=== PATIENT | female | born 1985 | race Caucasian/White ===

== ENCOUNTER 2016-08-17 19:07 | Emergency (ER) | payer MEDICAID ==
[2016-08-17] MEDS ORDERED: Albuterol/Ipratropium 3.0-0.5 MG/3 ML Neb Soln NEB ONE (19:54)
--- NOTE | 2016-08-17 20:10 | EDM.PDOC ---
ED HISTORY OF PRESENT ILLNESS - General Chief Complaint: Respiratory Problem Stated Complaint: COLD Time Seen by Provider: 08/17/16 19:27 Source of Information: Reports: Patient History Limitations: Reports: No limitations - History of Present Illness INITIAL COMMENTS - FREE TEXT/NARRATIVE: HISTORY AND PHYSICAL: [30-year-old female presenting with cough difficulty breathing. Patient was sick for one week and did have a fever.] History of Present Illness: [Patient's daughter has hx of asthma and used her nebulizer machine this morning. Patient has been coughing for the last week Patient's daughter was sick with the flu 3 weeks ago.] Review of Systems: As per history of present illness and below otherwise all systems reviewed and negative. Past medical history: As per history of present illness and as reviewed below otherwise noncontributory. Surgical history: As per history of present illness and as reviewed below otherwise noncontributory. Social history: No reported history of drug or alcohol abuse. Family history: As per history of present illness and as reviewed below otherwise noncontributory. Physical exam: Alert and oriented. Patient looks like she feels miserable. HEENT: Atraumatic, normocehpalic, pupils reactive, negative for conjunctival pallor or scleral icterus, mucous membranes moist, throat clear, neck supple, nontender, trachea midline. Lungs: Anterior crackles on auscultation, breath sounds equal bilaterally, chest tender. With cough. Heart: S1S2, regular, negative for clicks, rubs, or JVD. Abdomen: Soft, nondistended, nontender. Negative for masses or hepatossplenmegaly. Negative for costovertebral tenderness. Extremities: Atraumatic, negative for cords or calf pain. Neurovascular unremarkable. Neuro: Awake, alert, oriented. Cranial nerves II through XII unremarkable. Cerebellum unremarkable. Motor and sensory unremarkable throughout. Exam nonfocal. Diagnostics: [Influenza, chest x-ray all are negative] Therapeutics: [DuoNeb] Impression: [Acute bronchitis] Plan: [Zithromax Tessalon Perles Albuterol for Neb Machine] Definitive disposition and diagnosis as appropriate pending reevaluation and review of above. 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: Breathing treatments (this morning) - Related Data Allergies/ADRs: Allergies Allergy/AdvReac Type Severity Reaction Status Date / Time meperidine HCl [From Demerol] Allergy Anxiety Verified 12/09/15 02:10 penicillin G Allergy Vomiting Verified 08/17/16 19:22 penicillin G procaine Allergy Vomiting Verified 08/17/16 19:22 penicillin V Allergy Vomiting Verified 08/17/16 19:22 Penicillins Allergy Vomiting Verified 08/17/16 19:22 Home Meds: Home Meds Insulin Aspart [Novolog Flexpen] 0 units SQ DAILY 09/11/15 [History] Insulin Detemir [Levemir] 20 unit SUBCUT BEDTIME 09/11/15 [History] Lisinopril 10 mg PO DAILY 12/09/15 [History] Albuterol [IMW: Albuterol] 2.5 mg .XX Q4HR #25 ml 08/17/16 [Rx] Azithromycin [Zithromax] 250 mg PO DAILY #6 tablet 08/17/16 [Rx] Benzonatate [Tessalon Perles] 100 mg PO QID #40 cap 08/17/16 [Rx] Past Medical History - Past Health History Medical/Surgical History: Denies Medical/Surgical History HEENT History: Reports: Impaired vision Cardiovascular History: Reports: High cholesterol 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: Endocrine/Metabolic History: Reports: Diabetes, type II - Infectious Disease History Infectious Disease History: Reports: Chicken pox, Measles, Mumps - Past Surgical History Musculoskeletal Surgical History: Reports: Other (see below) Other Musculoskeletal Surgeries/Procedures:: left wrist surgery Social & Family History - Family History Family Medical History: Noncontributory - Tobacco Use Smoking Status *Q: Never Smoker Second Hand Smoke Exposure: No - Caffeine Use Caffeine Use: Reports: None - Recreational Drug Use Recreational Drug Use: No ED ROS GENERAL - Review of Systems Review Of Systems: ROS reveals no pertinent complaints other than HPI. ED EXAM, GENERAL - Physical Exam Exam: See Below (see dictation) Course - Vital Signs Last Recorded V/S: Last Vital Signs Temp 37.4 C 08/17/16 19:23 Pulse 101 H 08/17/16 20:50 Resp 20 08/17/16 20:50 BP 124/71 08/17/16 20:50 Pulse Ox 98 08/17/16 20:50 - Orders/Labs/Meds Orders: Active Orders 24 hr Category Date Time Status RT Aerosol Therapy [RC] ASDIRECTED Care 08/17/16 19:54 Active Chest 2V [CR] Stat Exams 08/17/16 20:21 Taken Meds: Medications Discontinued Medications Generic Name Dose Route Start Last Admin Trade Name Horacio PRN Reason Stop Dose Admin Albuterol/Ipratropium 3 ml 08/17/16 19:54 08/17/16 20:04 Duoneb 3.0-0.5 Mg/3 Ml NEB 08/17/16 19:55 3 ml ONETIME ONE Administration Departure - Departure Time of Disposition: 21:02 Disposition: Home, Self-Care 01 Condition: good Clinical Impression: Bronchitis Prescriptions: Albuterol [IMW: Albuterol] 2.5 mg .XX Q4HR #25 ml Azithromycin [Zithromax] 250 mg PO DAILY #6 tablet Benzonatate [Tessalon Perles] 100 mg PO QID #40 cap Referrals: PCP,None [Primary Care Provider] - Forms: ED Department Discharge - My Orders Last 24 Hours: My Active Orders 08/17/16 19:54 RT Aerosol Therapy [RC] ASDIRECTED 08/17/16 20:21 Chest 2V [CR] Stat - Assessment/Plan Last 24 Hours: My Active Orders 08/17/16 19:54 RT Aerosol Therapy [RC] ASDIRECTED 08/17/16 20:21 Chest 2V [CR] Stat
[2016-08-17 21:24] VITALS: BP 126/74
--- NOTE | 2016-08-18 19:39 | CR ---
EXAM DATE: 08/17/16 PATIENT'S AGE: 30 Patient: BANDAR BANG Facility: [place], [place] Site . Site : [id number] Study: XRay Chest [id number]/9/2017 8:31:41 PM Ordering Physician: Doctor Priest Final Report: INDICATION: cough x8 days TECHNIQUE: Chest 2 views. COMPARISON: None. FINDINGS: Cardiovascular and mediastinum: Heart size and vasculature are normal in caliber and appearance. Mediastinum is within normal limits. Lungs and pleural spaces: Lungs are clear. No sign of infiltrate or mass. No sign of pleural effusion. No pneumothorax. Bones and soft tissues: No significant findings. IMPRESSION: Unremarkable chest. Dictated by: Harpreet Lares MD @ 08/17/2016 20:38:54 (Electronic Signature) Report Signed by Proxy and Original Signed Document filed in the Medical Record. [email or web address]
== END 2016-08-17 21:22 | disposition home or self-care (01) ==
LOC: MW.ED 19:07
DX: J20.9 Acute bronchitis, unspecified (principal); E78.00 Pure hypercholesterolemia, unspecified; E11.9 Type 2 diabetes mellitus without complications; Z79.4 Long term (current) use of insulin; Z88.0 Allergy status to penicillin
CPT/HCPCS: 71020; 71020-26; 87804; 94664; 99284; 99284-25

== ENCOUNTER 2017-06-08 15:41 | Emergency (ER) | payer MEDICAID ==
[2017-06-08] MEDS ORDERED: Albuterol/Ipratropium 3.0-0.5 MG/3 ML Neb Soln NEB ONE (16:25)
--- NOTE | 2017-06-08 16:33 | EDM.PDOC ---
ED HPI GENERAL MEDICAL PROBLEM - General Chief Complaint: Respiratory Problem Stated Complaint: cough Time Seen by Provider: 06/08/17 16:00 Source of Information: Reports: Patient History Limitations: Reports: No Limitations - History of Present Illness INITIAL COMMENTS - FREE TEXT/NARRATIVE: History of present illness: [31-year-old female comes in complaining of intermittent fever, productive cough , and sore throat. Indicates the symptoms have gotten progressively worse over the last 36 hours.] Review of systems: As per history of present illness and below otherwise all systems reviewed and negative. Past medical history: As per history of present illness and as reviewed below otherwise noncontributory. Surgical history: As per history of present illness and as reviewed below otherwise noncontributory. Social history: No reported history of drug or alcohol abuse. Family history: As per history of present illness and as reviewed below otherwise noncontributory. Physical exam: HEENT: Atraumatic, normocephalic, pupils reactive, negative for conjunctival pallor or scleral icterus, mucous membranes moist with oral pharyngeal erythema without white patchy exudate, bilateral TMs noted to be pink with good light reflex, neck supple, nontender, trachea midline. Lungs: Lungs slightly diminished with random coarse breath sounds that improve with productive cough, sputum noted to be slightly green and sen in color, breath sounds equal bilaterally, chest nontender. Heart: S1S2, regular, negative for clicks, rubs, or JVD. Abdomen: Soft, nondistended, nontender. Negative for masses or hepatosplenomegaly. Negative for costovertebral tenderness. Pelvis: Stable nontender. Genitourinary: Deferred. Rectal: Deferred. Extremities: Atraumatic, negative for cords or calf pain. Neurovascular unremarkable. Neuro: Awake, alert, oriented. Cranial nerves II through XII unremarkable. Cerebellum unremarkable. Motor and sensory unremarkable throughout. Exam nonfocal. Diagnostics: [] Therapeutics: [DuraNeb] Impression: [#1 pharyngitis #2 cough #3 viral syndrome] Plan: [Azithromycin, Medrol Dosepak, albuterol inhaler with spacer] Definitive disposition and diagnosis as appropriate pending reevaluation and review of above. Bodyaches Pain Score (Numeric/FACES): 5 - Related Data Allergies Allergy/AdvReac Type Severity Reaction Status Date / Time meperidine HCl [From Demerol] Allergy Anxiety Verified 06/08/17 16:08 penicillin G Allergy Vomiting Verified 06/08/17 16:08 penicillin G procaine Allergy Vomiting Verified 06/08/17 16:08 penicillin V Allergy Vomiting Verified 06/08/17 16:08 Penicillins Allergy Vomiting Verified 06/08/17 16:08 Home Meds: Home Meds Insulin Aspart [Novolog Flexpen] 0 units SQ DAILY 09/11/15 [History] Insulin Detemir [Levemir] 20 unit SUBCUT BEDTIME 09/11/15 [History] Lisinopril 10 mg PO DAILY 12/09/15 [History] Albuterol [IMW: Albuterol] 2.5 mg .XX Q4HR #25 ml 08/17/16 [Rx] Azithromycin [Zithromax] 250 mg PO DAILY #6 tablet 08/17/16 [Rx] Benzonatate [Tessalon Perles] 100 mg PO QID #40 cap 08/17/16 [Rx] Albuterol Sulfate [Proair Hfa] 2 puff IH Q6HR #1 hfa.aer.ad 06/08/17 [Rx] Azithromycin [IJD: Azithromycin] 250 mg PO DAILY #6 tab 06/08/17 [Rx] Inhaler, Assist Devices [Space Chamber Plus] 1 each MC ASDIRECTED #1 spacer [Rx] methylPREDNISolone [Medrol] 4 mg PO DAILY #21 tab.ds.pk 06/08/17 [Rx] Past Medical History - Past Health History Medical/Surgical History: Denies Medical/Surgical History HEENT History: Reports: Impaired Vision Cardiovascular History: Reports: High Cholesterol, Hypertension 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: Endocrine/Metabolic History: Reports: Diabetes, Type I - Infectious Disease History Infectious Disease History: Reports: Chicken Pox, Measles, Mumps - Past Surgical History Musculoskeletal Surgical History: Reports: Other (See Below) Social & Family History - Family History Family Medical History: Noncontributory - Tobacco Use Smoking Status *Q: Never Smoker Second Hand Smoke Exposure: No - Caffeine Use Caffeine Use: Reports: None - Recreational Drug Use Recreational Drug Use: No ED ROS GENERAL - Review of Systems Review Of Systems: See Below (History of present illness) ED EXAM, GENERAL - Physical Exam Exam: See Below (See history of present illness) Course - Vital Signs Last Recorded V/S: Last Vital Signs Temp 36.7 C 12/29/17 16:09 Pulse 85 06/08/17 16:09 Resp 18 06/08/17 16:09 BP 186/79 H 06/08/17 16:09 Pulse Ox 98 06/08/17 16:09 - Orders/Labs/Meds Orders: Active Orders 24 hr Category Date Time Status RT Aerosol Therapy [RC] ASDIRECTED Care 06/08/17 16:25 Ordered INFLUENZA A+B AG SCREEN [RM] Stat Lab 06/08/17 16:00 Received Meds: Medications Discontinued Medications Generic Name Dose Route Start Last Admin Trade Name Freq PRN Reason Stop Dose Admin Albuterol/Ipratropium 3 ml 06/08/17 16:25 Duoneb 3.0-0.5 Mg/3 Ml NEB 06/08/17 16:26 ONETIME ONE Departure - Departure Time of Disposition: 16:32 Disposition: Home, Self-Care 01 Condition: Good Clinical Impression: Acute pharyngitis, Bronchitis - Discharge Information Prescriptions: Albuterol Sulfate [Proair Hfa] 2 puff IH Q6HR #1 hfa.aer.ad Azithromycin [IJD: Azithromycin] 250 mg PO DAILY #6 tab Inhaler, Assist Devices [Space Chamber Plus] 1 each MC ASDIRECTED #1 spacer methylPREDNISolone [Medrol] 4 mg PO DAILY #21 tab.ds.pk Instructions: Acute Bronchitis, [id number], Upper Respiratory Infection, Adult, [id number] Referrals: Chasity Dolan, SPECIAL LOAN OFFICER [Primary Care Provider] - Additional Instructions: The following information is given to patients seen in the emergency department who are being discharged to home. This information is to outline your options for follow-up care. We provide all patients seen in our emergency department with a follow-up referral. The need for follow-up, as well as the timing and circumstances, are variable depending upon the specifics of your emergency department visit. If you don't have a primary care physician on staff, we will provide you with a referral. We always advise you to contact your personal physician following an emergency department visit to inform them of the circumstance of the visit and for follow-up with them and/or the need for any referrals to a consulting specialist. The emergency department will also refer you to a specialist when appropriate. This referral assures that you have the opportunity for follow-up care with a specialist. All of these measure are taken in an effort to provide you with optimal care, which includes your follow-up. Under all circumstances we always encourage you to contact your private physician who remains a resource for coordinating your care. When calling for follow-up care, please make the office aware that this follow-up is from your recent emergency room visit. If for any reason you are refused follow-up, please contact the [facility] Emergency Department at and asked to speak to the emergency department charge nurse. Take medication as directed Follow-up with PCP in 3-5 days Return to ED as needed as discussed - My Orders Last 24 Hours: My Active Orders 06/08/17 16:00 INFLUENZA A+B AG SCREEN [RM] Stat 06/08/17 16:25 RT Aerosol Therapy [RC] ASDIRECTED - Assessment/Plan Last 24 Hours: My Active Orders 06/08/17 16:00 INFLUENZA A+B AG SCREEN [RM] Stat 06/08/17 16:25 RT Aerosol Therapy [RC] ASDIRECTED
[2017-06-08 19:01] VITALS: BP 116/69
== END 2017-06-08 17:35 | disposition home or self-care (01) ==
LOC: MW.ED 15:41
DX: J02.9 Acute pharyngitis, unspecified (principal); J40 Bronchitis, not specified as acute or chronic; B34.9 Viral infection, unspecified; I10 Essential (primary) hypertension; E78.00 Pure hypercholesterolemia, unspecified; E10.9 Type 1 diabetes mellitus without complications; Z79.2 Long term (current) use of antibiotics; Z79.4 Long term (current) use of insulin; Z79.899 Other long term (current) drug therapy; Z88.0 Allergy status to penicillin; Z88.6 Allergy status to analgesic agent
CPT/HCPCS: 87804; 94640; 99283; 99283-25

== ENCOUNTER 2019-06-10 17:59 | Emergency (ER) | payer MEDICAID ==
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
--- NOTE | 2019-06-10 19:51 | CR ---
Indication: Injury and pain Technique: Right tibia and fibula 2 views Comparison: None Findings/Impression: Bones: Short-segment nondisplaced oblique fracture is in the distal fibula. No other osseous abnormality. Joint spaces: Unremarkable. Soft tissues: Unremarkable. Dictated by Benjamin Pulido MD @ Jun 10 2019 7:47PM Signed by Dr. Benjamin Pulido @ Jun 10 2019 7:49PM
--- NOTE | 2019-06-10 19:53 | CR ---
Indication: Injury and pain Technique: Right ankle 3 views Comparison: None Findings/Impression: Bones: Acute oblique nondisplaced fracture is in the lateral malleolus. No other osseous abnormality. Joint spaces: Ankle mortise may be minimally widened medially. No degenerative changes. Soft tissues: Soft tissue swelling is adjacent to the fracture. Dictated by Benjamin Pulido MD @ Jun 10 2019 7:48PM Signed by Dr. Benjamin Pulido @ Jun 10 2019 7:51PM
[2019-06-10 20:41] VITALS: BP 177/108; PULSE 103
== END 2019-06-10 20:36 | disposition home or self-care (01) ==
LOC: MW.ED 17:59
DX: S82.64XA Nondisplaced fracture of lateral malleolus of right fibula, initial encounter for closed fracture (principal); I10 Essential (primary) hypertension; E10.9 Type 1 diabetes mellitus without complications; E78.00 Pure hypercholesterolemia, unspecified; Z79.899 Other long term (current) drug therapy; W22.8XXA Striking against or struck by other objects, initial encounter; Y92.009 Unspecified place in unspecified non-institutional (private) residence as the place of occurrence of the external cause
CPT/HCPCS: 29515; 73590-26-RT; 73590-RT; 73610-26-RT; 73610-RT; 99282; 99283-25

== ENCOUNTER 2021-04-22 02:59 | Emergency (ER) | payer MEDICAID ==
[2021-04-22] MEDS ORDERED: Ketorolac 15 MG/ML SDV IM ONE (03:14)
--- NOTE | 2021-04-22 04:07 | CR ---
INDICATION: Pain after fall. COMPARISON: None available. FINDINGS: AP, lateral and oblique views of the left ankle were obtained for a total of three views. There is a trimalleolar ankle fracture-dislocation with approximately 1.5 centimeters of posterior and 1 centimeter of lateral subluxation of the talus in relationship to the tibial plafond. There is an oblique fracture of the distal fibular shaft. There is a transverse fracture of the base of the medial malleolus. There is approximately 1 centimeter of lateral displacement and 15 degrees lateral angulation of the distal fracture fragments associated with the lateral shift of the talus. There is a vertical fracture of the posterior distal tibia with approximately 30 degrees posterior angulation of the minor fracture fragment. There is no sign of a joint effusion. There is moderate diffuse soft tissue swelling. No degenerative changes are seen. IMPRESSION: Acute trimalleolar fracture-dislocation of the ankle with 1.5 centimeters of posterior and 1 centimeter lateral subluxation of the talus. Dictated by Jose Morales MD @ 04/22/2021 4:06:51 AM (Electronically Signed)
--- NOTE | 2021-04-22 04:16 | CR ---
Indication: Pain fall Technique: Four views the left foot Comparison: Ankle x-rays 04/22/2021 Findings: Intra-articular fracture at the base of the 1st proximal phalanx. Minimal displacement. Lateral view demonstrates slight cortical irregularity along the base of the cuboid subtle fracture not excluded. Trimalleolar fracture dislocation of the ankle partially seen. Dictated by Vero Andrews MD @ 04/22/2021 4:14:54 AM (Electronically Signed)
[2021-04-22] MEDS ORDERED: Bupivacaine 0.5% 10 ML SDV INJECT ONE (04:33)
[2021-04-22] MEDS ORDERED: Acetaminophen/HYDROcodone 325-5 MG Tab PO ONE (04:40)
[2021-04-22] MEDS ORDERED: fentaNYL 50 MCG/ML SDV IVPUSH ONE (05:02)
[2021-04-22] MEDS ORDERED: fentaNYL 100 MCG/2 ML SDV ONE (05:13)
[2021-04-22] MEDS ORDERED: Propofol 200 MG/20 ML SDV ONE ×3 (05:13→05:14)
--- NOTE | 2021-04-22 06:05 | EDM.PDOC ---
ED HPI GENERAL MEDICAL PROBLEM - General Chief Complaint: Lower Extremity Injury/Pain Stated Complaint: ANKLE PAIN Time Seen by Provider: 04/22/21 03:03 - History of Present Illness INITIAL COMMENTS - FREE TEXT/NARRATIVE: CHIEF COMPLAINT(S): Left ankle pain HISTORY OF PRESENT ILLNESS: This is a 35-year-old woman with a past medical history of obesity, hypertension and diabetes mellitus who comes to the emergency department with a chief complaint of left ankle pain. The patient states that prior to arrival she tripped and fell on her right ankle. She states that she is experiencing 10 of 10 pain in her left ankle. She denies any other injury. She states that the pain radiates up her leg. She denies any numbness, tingling, weakness. She has not yet tried any pain medication. There are no relieving factors. The pain is worsened by movement. She describes the pain as achy and throbbing. REVIEW OF SYSTEMS: Constitutional: Denies fever, chills. Eyes: Denies eye pain Ears, Nose, Mouth, & Throat: Denies earache Cardiovascular: Denies chest pain Respiratory: Denies shortness of breath Gastrointestinal: Denies Nausea, vomiting, diarrhea, hematochezia. Genitourinary: Denies hematuria Skin:Denies a rash MSK: Positive for left ankle pain Neurological: Denies blurred vision, numbness, tingling, weakness Psychiatric: Denies depression PAST MEDICAL HISTORY: As per history of present illness and as reviewed below otherwise noncontributory. SURGICAL HISTORY: As per history of present illness and as reviewed below otherwise noncontributory. SOCIAL HISTORY: As per history of present illness and as reviewed below otherwise noncontributory. FAMILY HISTORY: As per history of present illness and as reviewed below otherwise noncontributory. EXAMINATION OF ORGAN SYSTEMS/BODY AREAS: Constitutional: Blood pressure is 152/77, heart rate 110, respiratory rate 19 with an oxygen saturation 95% on room air. Temperature 36.4 General: Young woman who appears to be in a moderate amount of pain Psychiatric: Appropriate mood and affect. Eyes: No scleral icterus or conjunctival erythema ENMT: Moist mucous membranes. No pharyngeal erythema Cardiovascular: Regular, rate, and rhythm. No gallops, murmurs, or rubs. Bilateral upper extremity and lower extremity pulses symmetric and intact. No peripheral edema. No JVD. Respiratory: Lungs clear to auscultation bilaterally. No wheezes, rales, or rhonchi. Gastrointestinal: Soft, non-tender, non-distended. Normoactive bowel sounds Genitourinary: No suprapubic tenderness Musculoskeletal: Patient is able to dorsiflex and plantarflex the left foot. There is a deformity at the left ankle with moderate amount of swelling. There is lateral malleolar tenderness on the left side. No base of the fifth metatarsal tenderness. No proximal knee or tib-fib tenderness. No other abnormality on exam Skin: No lesions or abrasions. Neurological: Alert, GCS 15 distal sensation is intact MEDICAL DECISION MAKING AND COURSE IN THE ED WITH INTERPRETATION/REVIEW OF DIAGNOSTIC STUDIES: This is a 35-year-old woman with a past medical history of obesity, diabetes mellitus and hypertension who comes to the emergency department with acutely tender left ankle with lateral malleolar tenderness and swelling. At this time I do suspect a significant fracture. Will obtain a foot and ankle x-ray on the left. We will provide the patient with Toradol for pain relief. Also obtain a left tib-fib x-ray to evaluate for proximal fracture. DDx: Fracture, dislocation, soft tissue swelling The radiological images were viewed by myself along with reading the report from the radiologist. Left ankle x-ray reveals an acute trimalleolar fracture dislocation of the ankle with 1.5 cm of posterior and 1.0 cm lateral subluxation of the talus. Left foot x-ray reveals a proximal first phalanx fracture. This is intra- articular. After imaging I did contact [facility] in [place] and spoke with Dr. Wiley who stated that this is likely beyond podiatry therefore she recommended orthopedic. I spoke with Dr. Hastings who recommended reduction and a posterior splint with stirrup and follow-up in his clinic on Sunday. I did discuss the results with the patient. She was amenable to this plan. Given the multiple fractures we did contact anesthesia for procedural sedation. Please refer to their note. Hematoma Block Procedure Note Indication: Anesthesia for trimalleolar left fracture Consent: Verbal Procedure: Patients left ankle was prepped in a sterile fashion with betadine. The side of the fracture was identified by landmark palpation. 18 gauge needle was inserted directly over the fracture and advanced. Blood was aspirated. 20 cc of 0.5% Bupivicaine was injected. Needle was removed and pressure was provided with gauze. Sterile dressing was applied. Complications: None Noted Fracture/Dislocation Reduction Procedure Note Performed by: Myself Consent: Verbal consent obtained. Risks and benefits: risks, benefits and alternatives were discussed Consent given by: Patient Patient understanding: Patient states understanding of the procedure being performed Patient consent: Patient understanding of the procedure matches consent given Patient identity confirmed: verbally with patient and arm band Time out: Immediately prior to procedure a "time out" was called to verify the correct patient, procedure, equipment, youth support worker and site/side marked as required. Location details: Left ankle Reduction Procedure: axial pull and closed manipulation of left ankle Results: Post reduction alignment improved Complication: Tolerated well without complication. <2sec FRUIT CHECKER. Tendons intact. Post-reduction Examination: Patient is able to move all toes on her left foot. Capillary refill less than 2 seconds. Distal sensation intact. The radiological images were viewed by myself along with reading the report from the radiologist. Left tib-fib x-ray reveals moderate superficial tissue swelling without any acute abnormality. Left ankle post reduction film reveals a minimally displaced fracture of the distal fibula with associated soft tissue swelling with ankle mortise symmetry and no other displaced fractures appreciated. After imaging I did discuss symptomatic treatment at home. She was given strict return precautions. The patient was amenable discharge and had no further questions. DISPOSITION: The patient was discharged home in stable condition. The patient will follow up with orthopedics on Sunday which is in 3 days CONDITION: Fair PROCEDURES: Hematoma block, fracture/dislocation reduction FINAL IMPRESSION(S)/DIAGNOSES: 1. Acute left trimalleolar fracture status post reduction 2. Acute left proximal first phalanx intra-articular fracture DME: Left posterior mold with stirrup splint Indication: Left trimalleolar fracture Benefit: Immobilization Duration: Until follow-up with orthopedics Gibson Medel M.D. Left Ankle Pain Score (Numeric/FACES): 10 - Related Data Allergies Allergy/AdvReac Type Severity Reaction Status Date / Time meperidine HCl [From Demerol] Allergy Anxiety Verified 04/22/21 03:03 penicillin G Allergy Vomiting Verified 04/22/21 03:03 penicillin G procaine Allergy Vomiting Verified 04/22/21 03:03 penicillin V Allergy Vomiting Verified 04/22/21 03:03 Penicillins Allergy Vomiting Verified 04/22/21 03:03 Home Meds: Home Meds Insulin Aspart [Novolog Flexpen] 0 units SQ DAILY 09/11/15 [History] Insulin Detemir [Levemir] 20 unit SUBCUT BEDTIME 09/11/15 [History] Lisinopril 10 mg PO DAILY 12/09/15 [History] Hydrocodone/Acetaminophen [HYDROcodone-Acetaminophen 5-325 MG] 1 each PO Q6H #14 tab 04/22/21 [Rx] Ibuprofen 600 mg PO Q6HR #28 tablet 04/22/21 [Rx] Past Medical History - Past Health History Medical/Surgical History: Denies Medical/Surgical History HEENT History: Reports: Impaired Vision Cardiovascular History: Reports: High Cholesterol, Hypertension Respiratory History: Reports: None Gastrointestinal History: Reports: None Genitourinary History: Reports: None MANAGEMENT AIDE History: Reports: Musculoskeletal History: Reports: None Neurological History: Reports: None Psychiatric History: Reports: None Endocrine/Metabolic History: Reports: Diabetes, Type I Hematologic History: Reports: None Immunologic History: Reports: None Oncologic (Cancer) History: Reports: None Dermatologic History: Reports: None - Infectious Disease History Infectious Disease History: Reports: Chicken Pox, Measles, Mumps - Past Surgical History Head Surgeries/Procedures: Reports: None HEENT Surgical History: Reports: None Cardiovascular Surgical History: Reports: None Respiratory Surgical History: Reports: None GI Surgical History: Reports: None Female Surgical History: Reports: None Endocrine Surgical History: Reports: None Neurological Surgical History: Reports: None Musculoskeletal Surgical History: Reports: Other (See Below) Other Musculoskeletal Surgeries/Procedures:: left wrist surgery Oncologic Surgical History: Reports: None Dermatological Surgical History: Reports: None Social & Family History - Family History Family Medical History: No Pertinent Family History - Tobacco Use Tobacco Use Status *Q: Never Tobacco User - Caffeine Use Caffeine Use: Reports: None - Recreational Drug Use Recreational Drug Use: No Review of Systems - Review of Systems Review Of Systems: See Below ED EXAM, GENERAL - Physical Exam Exam: See Below Course - Vital Signs Last Recorded V/S: Last Vital Signs Temp 36.4 C 04/22/21 03:03 Pulse 110 H 04/22/21 03:03 Resp 19 04/22/21 03:03 BP 152/77 H 04/22/21 03:03 Pulse Ox 95 04/22/21 03:03 - Orders/Labs/Meds Orders: Active Orders 24 hr Category Date Time Status DME for Discharge [COMM] Stat Oth 04/22/21 06:17 Ordered Labs: Laboratory Tests 04/22/21 Range/Units 05:00 POC Glucose 117 H (70-99) mg/dL Meds: Medications Discontinued Medications Generic Name Dose Route Start Last Admin Trade Name Freq PRN Reason Stop Dose Admin Hydrocodone Bitart/Acetaminophen 1 tab 04/22/21 04:40 04/22/21 05:10 Acetaminophen/Hydrocodone 325-5 Mg Tab PO 04/22/21 04:41 Not Given ONETIME ONE Bupivacaine HCl 20 ml 04/22/21 04:33 04/22/21 05:08 Bupivacaine 0.5% 10 Ml Sdv INJECT 04/22/21 04:34 20 ml ONETIME ONE Administration Fentanyl 50 mcg 04/22/21 05:02 04/22/21 05:06 Fentanyl 50 Mcg/Ml Sdv IVPUSH 04/22/21 05:03 50 mcg ONETIME ONE Administration Fentanyl Confirm 04/22/21 05:13 Fentanyl 100 Mcg/2 Ml Sdv Administered 04/22/21 05:14 Dose 100 mcg .ROUTE .STK-MED ONE Ketorolac Tromethamine 15 mg 04/22/21 03:14 04/22/21 03:29 Ketorolac 15 Mg/Ml Sdv IM 04/22/21 03:15 15 mg ONETIME ONE Administration Propofol Confirm 04/22/21 05:13 Propofol 200 Mg/20 Ml Sdv Administered 04/22/21 05:14 Dose 200 mg .ROUTE .STK-MED ONE Propofol Confirm 04/22/21 05:13 Propofol 200 Mg/20 Ml Sdv Administered 04/22/21 05:14 Dose 200 mg .ROUTE .STK-MED ONE Propofol Confirm 04/22/21 05:14 Propofol 200 Mg/20 Ml Sdv Administered 04/22/21 05:15 Dose 200 mg .ROUTE .STK-MED ONE Departure - Departure Time of Disposition: 06:01 Disposition: Home, Self-Care 01 Condition: Fair Clinical Impression: Trimalleolar fracture of ankle, closed, Fracture of one or more phalanges of foot - Discharge Information *PRESCRIPTION DRUG MONITORING PROGRAM REVIEWED*: No *COPY OF PRESCRIPTION DRUG MONITORING REPORT IN PATIENT ANDRES: No Prescriptions: Hydrocodone/Acetaminophen [HYDROcodone-Acetaminophen 5-325 MG] 1 each PO Q6H #14 tab Ibuprofen 600 mg PO Q6HR #28 tablet Instructions: Closed Reduction for Ankle Fracture or Dislocation, Care After, Complex Ankle Fracture Referrals: PCP,None [Primary Care Provider] - Forms: ED Department Discharge Additional Instructions: You were evaluated today on an emergent basis. At this time you did have a pretty severe fracture of your left ankle and left foot. We were able to reduce this and place it in a splint. As discussed I want you to contact orthopedics today and make an appointment for Sunday in [facility]. Please use Motrin 600 mg every 6 hours and Tylenol 500 mg every 6 hours. In addition I did prescribe you with [place] which does contain Tylenol and I recommend you use 1 tablet every 6 hours as needed for severe pain. Please keep your left lower extremity elevated at the level of your heart and you may use ice on the ankle 20 minutes 4 times a day. Please do not put any weight onto this ankle. If you have any concerns such as worsening pain, numbness or you feel like there is not enough blood flow to your foot I would like you to return to the emergency department. [facility] [place], [place] [phone] The patient is informed of any results of their evaluation and diagnostic workup and all questions are answered. They are given discharge instructions and return precautions. The patient is stable for discharge. The patient states they understand and agree with the plan and that they will return if their symptoms get worse or if they have any new concerns. The following information is given to patients seen in the emergency department who are being discharged to home. This information is to outline your options for follow-up care. We provide all patients seen in our emergency department with a follow-up referral. The need for follow-up, as well as the timing and circumstances, are variable depending upon the specifics of your emergency department visit. If you don't have a primary care physician on staff, we will provide you with a referral. We always advise you to contact your personal physician following an emergency department visit to inform them of the circumstance of the visit and for follow-up with them and/or the need for any referrals to a consulting specialist. The emergency department will also refer you to a specialist when appropriate. This referral assures that you have the opportunity for follow-up care with a specialist. All of these measure are taken in an effort to provide you with optimal care, which includes your follow-up. Under all circumstances we always encourage you to contact your private physician who remains a resource for coordinating your care. When calling for follow-up care, please make the office aware that this follow-up is from your recent emergency room visit. If for any reason you are refused follow-up, please contact the Emergency Department at and asked to speak to the emergency department charge nurse. Sepsis Event Note (ED) - Focused Exam Vital Signs: Vital Signs Temp Pulse Resp BP Pulse Ox 04/22/21 03:03 36.4 C 110 H 19 152/77 H 95 - My Orders Last 24 Hours: My Active Orders 04/22/21 06:17 DME for Discharge [COMM] Stat - Assessment/Plan Last 24 Hours: My Active Orders 04/22/21 06:17 DME for Discharge [COMM] Stat
--- NOTE | 2021-04-22 06:17 | PCM.SN.2 ---
- Free Text/Narrative Note: Called to ED for procedural sedation at 0448, arrived at 0505. Sedation began at 0530, patient given a total of 330 mg propofol and 100 mcg fentanyl. Vital signs monitored throughout, pulse ox, HR, BP, ETCO2 normal. procedure ended 0553. patient monitored following procedure, VSS. Left ED at 0605.
--- NOTE | 2021-04-22 06:45 | CR ---
Indication: Postreduction Comparison: Three views left ankle April 22, 2021 Technique: AP, Lateral, and Oblique views left ankle were obtained Findings: There is a minimally displaced fracture of the distal fibula. No other displaced fractures are appreciated. The ankle mortise is symmetrical. The talar dome is smooth and intact. The joint spaces are otherwise grossly preserved. There is moderate superficial soft tissue swelling. Impression: Minimally displaced fracture of the distal fibula with associated soft tissue swelling. Dictated by Go Langston MD @ 04/22/2021 6:44:39 AM (Electronically Signed)
--- NOTE | 2021-04-22 06:45 | CR ---
Indication: Pain after fall Comparison: None available. Technique: AP and lateral views left tibia and fibula were obtained Findings: There is no displaced fracture or dislocation. The joint spaces are grossly preserved. There is moderate fusiform soft tissue swelling. Impression: Moderate superficial soft tissue swelling without acute osseous abnormality. Dictated by Go Langston MD @ 04/22/2021 6:43:36 AM (Electronically Signed)
[2021-04-22 07:07] VITALS: BP 141/73; PULSE 104
== END 2021-04-22 07:08 | disposition home or self-care (01) ==
LOC: MW.ED 02:59
DX: S82.852A Displaced trimalleolar fracture of left lower leg, initial encounter for closed fracture (principal); S92.412A Displaced fracture of proximal phalanx of left great toe, initial encounter for closed fracture; E10.9 Type 1 diabetes mellitus without complications; I10 Essential (primary) hypertension; E78.00 Pure hypercholesterolemia, unspecified; E66.9 Obesity, unspecified; Z88.0 Allergy status to penicillin; Z79.899 Other long term (current) drug therapy; Z68.42 Body mass index [BMI] 45.0-49.9, adult; W01.0XXA Fall on same level from slipping, tripping and stumbling without subsequent striking against object, initial encounter
CPT/HCPCS: 27818; 73590; 73610; 73630; 82947; 96372; 99284; J1885; J2704; J3010; J3490; 01462; 27840

== ENCOUNTER 2024-08-11 16:25 | Emergency (ER) | payer MEDICAID ==
[2024-08-11 18:56] VITALS: BP 160/97; PULSE 94
== END 2024-08-11 18:56 | disposition home or self-care (01) ==
LOC: MW.ED 16:25
DX: J39.9 Disease of upper respiratory tract, unspecified (principal); I10 Essential (primary) hypertension; E78.00 Pure hypercholesterolemia, unspecified; E10.9 Type 1 diabetes mellitus without complications; Z79.4 Long term (current) use of insulin; Z88.0 Allergy status to penicillin; Z88.8 Allergy status to other drugs, medicaments and biological substances
CPT/HCPCS: 87428-QW; 99283